=== PATIENT | male | born 1985 | race Caucasian/White ===

== ENCOUNTER 2019-02-05 12:07 | Emergency (ER) | payer OTHER ==
--- NOTE | 2019-02-05 12:33 | ED ---
General Adult HPI <Johnny Lenz - Last Filed: 02/05/19 15:10> - General Source: patient, RN notes reviewed Mode of arrival: ambulatory <Claudio Sheridan - Last Filed: 02/05/19 16:10> - General Chief complaint: Skin/Abscess/Foreign Body Stated complaint: Abcess on groin area Time Seen by Provider: 02/05/19 12:19 - History of Present Illness Initial comments: Patient 33-year-old presented to the emergency room today with chief complaint of increased pain to the scrotum. Patient does admit that he was at work yesterday noticed that he had a bump in the left groin. Patient says it is tender and that he noticed that he had some swelling down to the scrotum. Patient states is worried about possible abscess. He states he did have an abscess to the right axilla approximately 8 months ago this feels somewhat similar to him. He states he is not been drainage. Patient denies any other complaints or symptoms. Patient denies any recent fever, chills, shortness of breath, chest pain, back pain, abdominal pain, nausea or vomiting, numbness or tingling, headaches or visual changes, or any other complaints. (Waylon moser,Claudio) - Related Data Previous Rx's Medication Instructions Recorded Cephalexin [Keflex] 500 mg PO Q8HR #20 cap 02/05/19 Allergies Allergy/AdvReac Type Severity Reaction Status Date / Time No Known Allergies Allergy Verified 02/05/19 13:06 Review of Systems ROS Other: All systems not noted in ROS Statement are negative. <Johnny Lenz - Last Filed: 02/05/19 15:10> ROS Other: All systems not noted in ROS Statement are negative. <Claudio Sheridan - Last Filed: 02/05/19 16:10> ROS Statement: Those systems with pertinent positive or pertinent negative responses have been documented in the HPI. Past Medical History Additional Past Medical History / Comment(s): Hernia History of Any Multi-Drug Resistant Organisms: None Reported Past Surgical History: No Surgical Hx Reported Past Psychological History: No Psychological Hx Reported Smoking Status: Current every day smoker Past Alcohol Use History: None Reported Past Drug Use History: Marijuana <Claudio Sheridan - Last Filed: 02/05/19 16:10> General Exam <Claudio Sheridan - Last Filed: 02/05/19 16:10> - General Exam Comments Initial Comments: General: The patient is awake and alert, in no distress, and does not appear acutely ill. Eye: There is normal conjunctiva bilaterally. No signs of icterus. Ears, nose, mouth and throat: There are moist mucous membranes and no oral lesions. Neck: The neck is supple Gastrointestinal: Admits soft nontender. Musculoskeletal: Normal ROM, no tenderness. Neurological: A&O x 3. CN II-XII intact, There are no obvious motor or sensory deficits. Coordination appears grossly intact. Speech is normal. Skin: Skin is warm and dry and no rashes or lesions are noted. Psychiatric: Cooperative, appropriate mood & affect, normal judgment. : Circumcised male. Increased swelling to the right side of the scrotum. Ulcerated area at the distal aspect. It is firm patient. Mildly tender with some mild redness. Lymph nodes into the (Claudio Sheridan) Course <Johnny Lnez - Last Filed: 02/05/19 15:10> Vital Signs 02/05/19 12:12 Temperature 98.4 F Pulse Rate 91 Respiratory 20 Rate Blood Pressure 124/77 O2 Sat by Pulse 99 Oximetry - Reevaluation(s) Reevaluation #1: 02/05/19 15:10 Patient reevaluated by myself, Dr. Lenz. Patient does have swelling and tenderness right inferior scrotum. Patient does have lymph node in the right inguinal region as well. Case was discussed in detail with Dr. Carnes who will come evaluate the patient. (Johnny Lenz) Medical Decision Making - Lab Data Result diagrams: 02/05/19 12:50 02/05/19 12:50 <Johnny Lenz - Last Filed: 02/05/19 15:10> - Lab Data Result diagrams: 02/05/19 12:50 02/05/19 12:50 <Claudio Sheridan - Last Filed: 02/05/19 16:10> - Medical Decision Making The patient's ultrasound report was reviewed and case was discussed and seen by tender physician Dr. Lenz who did discuss the case with on-call urologist Dr. Wills who did come see the patient here in emergency room. He did training abscess. He did break prescription for Keflex for patient to continue with antibiotics and is advised follow-up the family and the office tomorrow. (Claudio Sheridan) - Lab Data Lab Results 02/05/19 02/05/19 02/05/19 Range/Units 12:50 12:50 12:50 WBC 10.9 H (3.8-10.6) k/uL RBC 4.84 (4.30-5.90) m/uL Hgb 14.4 (13.0-17.5) gm/dL Hct 44.1 (39.0-53.0) % MCV 91.2 (80.0-100.0) fL MCH 29.8 (25.0-35.0) pg MCHC 32.7 (31.0-37.0) g/dL RDW 12.4 (11.5-15.5) % Plt Count 287 (150-450) k/uL Neutrophils % 78 % Lymphocytes % 12 % Monocytes % 5 % Eosinophils % 4 % Basophils % 1 % Neutrophils # 8.5 H (1.3-7.7) k/uL Lymphocytes # 1.3 (1.0-4.8) k/uL Monocytes # 0.5 (0-1.0) k/uL Eosinophils # 0.4 (0-0.7) k/uL Basophils # 0.1 (0-0.2) k/uL Sodium 141 (137-145) mmol/L Potassium 4.6 (3.5-5.1) mmol/L Chloride 103 (98-107) mmol/L Carbon Dioxide 30 (22-30) mmol/L Anion Gap 8 mmol/L BUN 11 (9-20) mg/dL Creatinine 0.90 (0.66-1.25) mg/dL Est GFR (CKD-EPI)AfAm >90 (>60 ml/min/1.73 sqM) Est GFR (CKD-EPI)NonAf >90 (>60 ml/min/1.73 sqM) Glucose 114 H (74-99) mg/dL Plasma Lactic Acid Lavell 1.1 (0.7-2.0) mmol/L Calcium 10.2 (8.4-10.2) mg/dL Urine Color Urine Appearance (Clear) Urine pH (5.0-8.0) Ur Specific [place] (1.001-1.035) Urine Protein (Negative) Urine Glucose (UA) (Negative) Urine Ketones (Negative) Urine Blood (Negative) Urine Nitrite (Negative) Urine Bilirubin (Negative) Urine Urobilinogen (<2.0) mg/dL Ur Leukocyte Esterase (Negative) Urine RBC (0-5) /hpf Ur Squamous Epith Cells (0-4) /hpf Amorphous Sediment (None) /hpf Urine Mucus (None) /hpf 02/05/19 Range/Units 13:08 WBC (3.8-10.6) k/uL RBC (4.30-5.90) m/uL Hgb (13.0-17.5) gm/dL Hct (39.0-53.0) % MCV (80.0-100.0) fL MCH (25.0-35.0) pg MCHC (31.0-37.0) g/dL RDW (11.5-15.5) % Plt Count (150-450) k/uL Neutrophils % % Lymphocytes % % Monocytes % % Eosinophils % % Basophils % % Neutrophils # (1.3-7.7) k/uL Lymphocytes # (1.0-4.8) k/uL Monocytes # (0-1.0) k/uL Eosinophils # (0-0.7) k/uL Basophils # (0-0.2) k/uL Sodium (137-145) mmol/L Potassium (3.5-5.1) mmol/L Chloride (98-107) mmol/L Carbon Dioxide (22-30) mmol/L Anion Gap mmol/L BUN (9-20) mg/dL Creatinine (0.66-1.25) mg/dL Est GFR (CKD-EPI)AfAm (>60 ml/min/1.73 sqM) Est GFR (CKD-EPI)NonAf (>60 ml/min/1.73 sqM) Glucose (74-99) mg/dL Plasma Lactic Acid Lavell (0.7-2.0) mmol/L Calcium (8.4-10.2) mg/dL Urine Color Yellow Urine Appearance Cloudy (Clear) Urine pH 7.5 (5.0-8.0) Ur Specific [place] 1.016 (1.001-1.035) Urine Protein Negative (Negative) Urine Glucose (UA) Negative (Negative) Urine Ketones Negative (Negative) Urine Blood Negative (Negative) Urine Nitrite Negative (Negative) Urine Bilirubin Negative (Negative) Urine Urobilinogen <2.0 (<2.0) mg/dL Ur Leukocyte Esterase Negative (Negative) Urine RBC 3 (0-5) /hpf Ur Squamous Epith Cells <1 (0-4) /hpf Amorphous Sediment Occasional H (None) /hpf Urine Mucus Rare H (None) /hpf Disposition <Johnny Lenz - Last Filed: 02/05/19 15:10> Is patient prescribed a controlled substance at d/c from ED?: No Time of Disposition: 16:10 <Claudio Sheridan - Last Filed: 02/05/19 16:10> Clinical Impression: Scrotal abscess Disposition: HOME SELF-CARE Condition: Good Additional Instructions: Please follow-up the urologist tomorrow as discussed. Continue antibiotics as prescribed. Return to emergency room for any other concerns. Prescriptions: Cephalexin [Keflex] 500 mg PO Q8HR #20 cap Referrals: None,Stated [Primary Care Provider] - 1-2 days Usama Wills MD [STAFF PHYSICIAN] - 02/06/19
[2019-02-05 13:23] LABS: Basophils # (A) 0.1 k/uL (0-0.2); Basophils % (A) 1 %; Eosinophils # (A) 0.4 k/uL (0-0.7); Eosinophils % (A) 4 %; HCT 44.1 % (39.0-53.0); HGB 14.4 gm/dL (13.0-17.5); Lymphocytes # (A) 1.3 k/uL (1.0-4.8); Lymphocytes % (A) 12 %; MCH 29.8 pg (25.0-35.0); MCHC 32.7 g/dL (31.0-37.0); MCV 91.2 fL (80.0-100.0); Mean Platelet Volume 6.5; Monocytes # (A) 0.5 k/uL (0-1.0); Monocytes % (A) 5 %; Neutrophils # (A) 8.5 k/uL (1.3-7.7); Neutrophils % (A) 78 %; Platelet Count 287 k/uL (150-450); RBC 4.84 m/uL (4.30-5.90); RDW 12.4 % (11.5-15.5); WBC 10.9 k/uL (3.8-10.6)
[2019-02-05 13:35] LABS: Anion Gap 8 mmol/L; Blood Urea Nitrogen 11 mg/dL (9-20); Calcium 10.2 mg/dL (8.4-10.2); Carbon Dioxide 30 mmol/L (22-30); Chloride 103 mmol/L (98-107); Glucose 114 mg/dL (74-99); Potassium 4.6 mmol/L (3.5-5.1); Sodium 141 mmol/L (137-145)
[2019-02-05 13:39] LABS: Amorphous Sediment,Urine Occasional /hpf; Appearance,Urine Cloudy (Clear); Bilirubin,Urine Negative (Negative); Blood,Urine Negative (Negative); Color,Urine Yellow; Glucose,Urine (UA) Negative (Negative); Ketones,Urine Negative (Negative); Leukocyte Esterase,Urine Negative (Negative); Mucus,Urine Rare /hpf; Nitrite,Urine Negative (Negative); PH, Urine 7.5 (5.0-8.0); Protein,Urine Negative (Negative); RBC,Urine 3 /hpf (0-5); Specific Gravity,Urine 1.016 (1.001-1.035); Squamous Epithelial Cell,Urine <1 /hpf (0-4); Urobilinogen,Urine <2.0 mg/dL (<2.0)
--- NOTE | 2019-02-05 14:32 | US ---
EXAMINATION TYPE: US scrotum with doppler. Grayscale and color Doppler Duplex imaging performed of kael martinez scrotum. DATE OF EXAM: 02/05/2019 COMPARISON: NONE CLINICAL HISTORY: Pain. EXAM MEASUREMENTS: TESTICLES: Right Testicle: 3.8 X 2.1 X 2.7 cm Left Testicle: 3.8 X 2.1 X 1.7 cm EPIDIDYMIS HEAD: Right Epididymis: 0.8 cm Left Epididymis: 0.8 cm Doppler performed to assess for testicular vascularity; good bilateral color flow and waveforms are s een. There is no evidence of testicular torsion. Presence of hydroceles: Rt: 1.8 x 1.2 x 2.0cm (internal echoes) Presence of varicoceles: No Enlarged lymph nodes noted in right groin largest measuring 1.6cm At patients palpable at inferior scrotal sac is an irregular shaped, complex mass with increased vasc ularity surrounding measuring 2.3 x 1.2 x 1.5cm IMPRESSION: 1. At the area of palpable abnormality there is an irregular shaped complex mass with vascularity chen suring 2.3 cm. Urology consultation recommended. Differential diagnosis would include neoplasm or abs cess. 2. There are enlarged lymph nodes within the right groin measuring 1.6 cm. 3. Small right hydrocele.
[2019-02-05] MEDS ORDERED: ONDANSETRON 4 MG/2 ML VIAL IVP STA (15:10)
[2019-02-05] MEDS ORDERED: HYDROmorphone 1 MG/ML 1 ML SYRINGE IVP STA (15:10)
[2019-02-05] MEDS ORDERED: LIDOCAINE 1% INJ 10MG/ML (20 ML MDV) SQ ONE (15:35)
--- NOTE | 2019-02-05 16:01 | P.GSCN ---
History of Present Illness Consult date: 02/05/19 History of present illness: The patient is a 33-year-old gentleman who stated the last 24 hours developed some scrotal pain and swelling. He came to emergency room today. He is seen by Dr. Lenz. He suspected a scrotal abscess. A an ultrasound of the scrotum indeed confirmed a scrotal abscess. I was asked see the patient. He is afebrile. His white count is mildly elevated at 10,900. On examination he has a scrotal abscess in the right posterior scrotum. He will need this drained. He has no voiding dysfunction. He has had one other axillary abscess many years ago. He has no major problems with hidradenitis. Review of Systems All systems: negative - Constitutional Denies fever, Denies weight loss - EENT Eyes: denies blurred vision Ears, nose, mouth and throat: Denies dysphagia - Cardiovascular Denies chest pain, Denies shortness of breath - Respiratory Denies cough, Denies 7 - Gastrointestinal Reports as per HPI - Genitourinary Denies dysuria, Denies hematuria - Integumentary Denies rash, Denies unusual bruising - Neurological Denies headaches, Denies syncope - Hematologic/Lymphatic Denies easy bleeding, Denies easy bruising Past Medical History Additional Past Medical History / Comment(s): Hernia History of Any Multi-Drug Resistant Organisms: None Reported Past Surgical History: No Surgical Hx Reported Past Psychological History: No Psychological Hx Reported Smoking Status: Current every day smoker Past Alcohol Use History: None Reported Past Drug Use History: Marijuana Medications and Allergies Home Medications Medication Instructions Recorded Confirmed Type Cephalexin [Keflex] 500 mg PO Q8HR #20 cap 02/05/19 Rx Allergies Allergy/AdvReac Type Severity Reaction Status Date / Time No Known Allergies Allergy Verified 02/05/19 13:06 Surgical - Exam Vital Signs Temp Pulse Resp BP Pulse Ox 98.4 F 91 20 124/77 99 02/05/19 12:12 02/05/19 12:12 02/05/19 12:12 02/05/19 12:12 02/05/19 12:12 - General well developed, well nourished, moderate distress - Eyes PERRL - ENT no hearing loss - Neck trachea midline - Respiratory normal expansion, normal respiratory effort - Cardiovascular Rhythm: regular - Abdomen Abdomen: soft, non tender - Genitourinary There is a 2 cm abscess in the right posterior scrotum. There is a small amount necrotic skin in the center of the abscess . - Neurologic normal coordination, normal sensation - Musculoskeletal normal posture - Psychiatric oriented to time, oriented to person, oriented to place, speech is normal, memory intact Results - Labs 02/05/19 12:50 02/05/19 12:50 Abnormal Lab Results - Last 24 Hours (Table) 02/05/19 02/05/19 02/05/19 Range/Units 12:50 12:50 13:08 WBC 10.9 H (3.8-10.6) k/uL Neutrophils # 8.5 H (1.3-7.7) k/uL Glucose 114 H (74-99) mg/dL Amorphous Sediment Occasional H (None) /hpf Urine Mucus Rare H (None) /hpf Diabetes panel 02/05/19 Range/Units 12:50 Sodium 141 (137-145) mmol/L Potassium 4.6 (3.5-5.1) mmol/L Chloride 103 (98-107) mmol/L Carbon Dioxide 30 (22-30) mmol/L BUN 11 (9-20) mg/dL Creatinine 0.90 (0.66-1.25) mg/dL Glucose 114 H (74-99) mg/dL Calcium 10.2 (8.4-10.2) mg/dL Calcium panel 02/05/19 Range/Units 12:50 Calcium 10.2 (8.4-10.2) mg/dL Pituitary panel 02/05/19 Range/Units 12:50 Sodium 141 (137-145) mmol/L Potassium 4.6 (3.5-5.1) mmol/L Chloride 103 (98-107) mmol/L Carbon Dioxide 30 (22-30) mmol/L BUN 11 (9-20) mg/dL Creatinine 0.90 (0.66-1.25) mg/dL Glucose 114 H (74-99) mg/dL Calcium 10.2 (8.4-10.2) mg/dL Adrenal panel 02/05/19 Range/Units 12:50 Sodium 141 (137-145) mmol/L Potassium 4.6 (3.5-5.1) mmol/L Chloride 103 (98-107) mmol/L Carbon Dioxide 30 (22-30) mmol/L BUN 11 (9-20) mg/dL Creatinine 0.90 (0.66-1.25) mg/dL Glucose 114 H (74-99) mg/dL Calcium 10.2 (8.4-10.2) mg/dL Assessment and Plan Assessment: Impression: Scrotal abscess Recommendations: Incision and drainage
--- NOTE | 2019-02-05 16:03 | P.PCN ---
Date of Procedure: 02/05/19 Preoperative Diagnosis: Scrotal abscess Postoperative Diagnosis: Same Procedure(s) Performed: Incision and drainage of scrotal abscess Anesthesia: local Surgeon: Usama Wills Pathology: other (Abscess culture) Condition: stable Disposition: PACU Indications for Procedure: The patient has a 2 cm posterior right scrotal abscess. Description of Procedure: The patient was prepped and draped sterilely. 3 mL of 1% Xylocaine plain is infiltrated completely around the scrotal abscess. After adequate anesthesia and midline scrotal incision is made and abscesses drained. It is cultured. Having cleared the abscess completely. I then pack it with quarter-inch iodoform gauze and dressed. Patient tolerated procedure well.
[2019-02-05 16:25] VITALS: BP 143/87; PULSE 61; RESP 16; TEMP 98.3
== END 2019-02-05 16:26 | disposition home or self-care (01) ==
LOC: EC 12:07
DX: N49.2 Inflammatory disorders of scrotum (principal); F17.200 Nicotine dependence, unspecified, uncomplicated; Z87.19 Personal history of other diseases of the digestive system
CPT/HCPCS: 36415; 80048; 83605; 85025; 81001; 87070; 87205; 93975; 76870; 99284; 55100; 96374; 96375; J2405; J2001; J1170

== ENCOUNTER 2019-07-06 01:25 | Emergency (ER) | payer OTHER ==
--- NOTE | 2019-07-06 02:07 | ED ---
Upper Extremity HPI - General Chief Complaint: Extremity Injury, Upper Stated Complaint: Shoulder pain Source: patient Mode of arrival: ambulatory Limitations: no limitations - History of Present Illness Initial Comments: Benson is a 34-year-old gentleman who presents to the emergency department today for reevaluation of right-sided shoulder pain. Patient reports he had an injury in April of this year, he was evaluated an outside hospital and diagnosed with an AC separation. 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 Patient states that he now has insurance so he wanted to have his shoulder re- evaluated. he reports persistent pain in the shoulder which is worse with any overhead reaching movements. MD Complaint: Injury to:: right Onset/Timin -: month(s) - Related Data Home Medications Medication Instructions Recorded Confirmed No Known Home Medications 07/06/19 07/06/19 Allergies Allergy/AdvReac Type Severity Reaction Status Date / Time No Known Allergies Allergy Verified 02/05/19 13:06 Review of Systems ROS Statement: Those systems with pertinent positive or pertinent negative responses have been documented in the HPI. ROS Other: All systems not noted in ROS Statement are negative. Past Medical History Additional Past Medical History / Comment(s): Hernia History of Any Multi-Drug Resistant Organisms: MRSA Date of last positivie culture/infection: 02/05/19 MDRO Source:: MRSA GROIN Past Surgical History: No Surgical Hx Reported Past Psychological History: No Psychological Hx Reported Smoking Status: Current every day smoker Past Alcohol Use History: None Reported Past Drug Use History: Marijuana General Exam Limitations: no limitations Course Vital Signs 07/06/19 01:32 Temperature 97.7 F Pulse Rate 96 Respiratory 20 Rate Blood Pressure 135/84 O2 Sat by Pulse 100 Oximetry Medical Decision Making - Medical Decision Making She was seen and evaluated, history is obtained from the patient Physical exam consistent with a significant before meals separation. Repeat x- rays were obtained so the patient can follow up with orthopedics. Repeat x-rays confirm a significant before meals separation. Patient will be discharged home and referred to orthopedics for follow-up. Disposition Clinical Impression: AC separation Disposition: HOME SELF-CARE Condition: Stable Instructions (If sedation given, give patient instructions): Acromioclavicular Separation (ED) Is patient prescribed a controlled substance at d/c from ED?: No Referrals: None,Stated [Primary Care Provider] - 1-2 days Leonel Calix MD [STAFF PHYSICIAN] - 1-2 days
--- NOTE | 2019-07-06 02:14 | XR ---
EXAMINATION TYPE: XR shoulder limited RT DATE OF EXAM: 07/06/2019 COMPARISON: NONE HISTORY: Pain TECHNIQUE: 2 views FINDINGS: There is significant malalignment of the AC joint. There is a 15 mm inferior subluxation of the acromion. There is probably a chip fracture of the lateral end of the clavicle. There is no disl ocation at the shoulder joint. IMPRESSION: Significant malalignment of the AC joint related to AC ligament tear and coracoclavicular ligament tear. No dislocation of the shoulder joint.
[2019-07-06 03:08] VITALS: BP 136/72; PULSE 88; RESP 18; TEMP 98
== END 2019-07-06 03:08 | disposition home or self-care (01) ==
LOC: EC 01:25
DX: S43.101A Unspecified dislocation of right acromioclavicular joint, initial encounter (principal); F17.200 Nicotine dependence, unspecified, uncomplicated; Z86.14 Personal history of Methicillin resistant Staphylococcus aureus infection; X58.XXXA Exposure to other specified factors, initial encounter; Y93.I9 Activity, other involving external motion
CPT/HCPCS: 99283